=== PATIENT | female | born 1990 | race Caucasian/White ===

== ENCOUNTER 2016-05-20 09:45 | Emergency (ER) | payer OTHER ==
--- NOTE | 2016-05-20 10:21 | ER Document Report ---
[id number] TRAVEL OUTSIDE OF THE [place] IN LAST 30 DAYS: No - HPI Patient complains to provider of: Difficulty breathing Onset/Duration: Gradual, Persistent Associated symptoms: Chest pain - with cough, Productive cough. denies: Diarrhea, Fever, Nausea, Vomiting - General Chief Complaint: Breathing Difficulty Stated Complaint: DIFFICULTY BREATHING Notes: Patient is a 25-year-old female presenting to the emergency department with concerns of difficulty breathing. Patient has lost her voice, and states that her chest hurts when she coughs or laughs, but she denies fever, vomiting, nausea, diarrhea, or any chance of being . Patient also states that recently she was felt some pressure in her lymph nodes. Patient received some Tamiflu from her [id number] which she took , but it did not help. Saturday patient began taking cough syrup with codeine that she had from the last time she had bronchitis. This morning, patient noticed that she began to wheeze which worried her, so she came into the emergency room. (KARSTEN RYAN) - Related Data Allergies/Adverse Reactions: amoxicillin [Amoxicillin] Allergy (Verified 05/22/15 19:51) Penicillins Allergy (Verified 05/22/15 19:51) Past Medical History - Social History Smoking Status: Unknown if Ever Smoked Lives with: Family Family History: Reviewed & Not Pertinent Pulmonary Medical History: Reports: Hx Asthma, Hx Bronchitis - seasonal Past Surgical History: Reports: Hx Adenoidectomy, Hx Oral Surgery, Hx Tonsillectomy - Immunizations Immunizations up to date: Yes Hx Diphtheria, Pertussis, Tetanus Vaccination: Yes Review of Systems - Review of Systems Constitutional: No symptoms reported. denies: Fever EENT: No symptoms reported Cardiovascular: No symptoms reported Respiratory: Cough, Hurts to breathe, Wheezing Gastrointestinal: No symptoms reported. denies: Diarrhea, Nausea, Vomiting Genitourinary: No symptoms reported Female Genitourinary: No symptoms reported Musculoskeletal: No symptoms reported Skin: No symptoms reported Hematologic/Lymphatic: No symptoms reported Neurological/Psychological: No symptoms reported Physical Exam - Vital signs Interpretation: Tachycardic - General General appearance: Alert - HEENT Head: Normocephalic, Atraumatic Eyes: Normal Pupils: PERRL Neck: No: Lymphadenopathy - Respiratory Respiratory status: No respiratory distress Chest status: Tender, Pain with cough Breath sounds: Wheezing - Chest tight with occasional inspiratory wheeze. - Cardiovascular Rhythm: Regular Heart sounds: Normal auscultation Murmur: No - Abdominal Inspection: Normal Distension: No distension Bowel sounds: Normal Tenderness: Nontender Organomegaly: No organomegaly - Back Back: Normal, Nontender - Extremities General upper extremity: Normal inspection, Nontender, Normal color, Normal ROM , Normal temperature General lower extremity: Normal inspection, Nontender, Normal color, Normal ROM , Normal temperature, Normal weight bearing - Neurological Neuro grossly intact: Yes Cognition: Normal Orientation: AAOx4 Eagle Coma Scale Eye Opening: Spontaneous Eagle Coma Scale Verbal: Oriented Ness Coma Scale Motor: Obeys Commands Eagle Coma Scale Total: 15 Speech: Normal - Psychological Associated symptoms: Normal affect, Normal mood - Skin Skin Temperature: Warm Skin Moisture: Dry Skin Color: Normal - Vital signs Vitals: Temp Pulse Resp BP Pulse Ox 98.2 F 108 H 18 126/86 H 100 05/20/16 09:49 05/20/16 09:49 05/20/16 09:49 05/20/16 09:49 05/20/16 09:49 (ALY MUNGUIA) (KARSTEN RYAN) Course - Re-evaluation Re-evalutation: 05/20/16 11:37 I personally performed the services described in the documentation, reviewed and edited the documentation which was dictated to my scribe in my presence, and it accurately records my words and actions. She presents emergency Department with a one-day history of wheezing chest is tight cough and laryngitis. Hasn't been sick around her coughed all night long no medications at home for this. She is a history of asthma as a child but says she hasn't any use anything since she was 16. Denies any recent history of travel surgery mobilization DVT or pulmonary emboli no clinical concerns for cardiac or pulmonary emboli she is not hypoxic significant improvement with breathing treatments chest x-ray is negative for pneumonia. We will DC on albuterol inhaler and prednisone for primary care physician to 3 days and discussed reasons for ED return sooner (ALY MUNGUIA) - Vital Signs Vital signs: Temp Pulse Resp BP Pulse Ox 98.3 F 85 20 126/78 H 98 05/20/16 12:38 05/20/16 12:38 05/20/16 12:38 05/20/16 12:38 05/20/16 12:38 (ALY MUNGUIA) (KARSTEN RYAN) Scribe Documentation - Scribe Written by Johnathan:: Karsten Ryan 05/20/2016 10:21 acting as scribe for :: Gregg
[2016-05-20] MEDS ORDERED: PREDNISONE 20 MG TABLET PO ONE (10:49)
[2016-05-20] MEDS ORDERED: ALBUTEROL SULFATE 0.083% NEB 2.5 MG/3 ML AMPUL NEB ONE (10:49)
[2016-05-20] MEDS ORDERED: IPRATROPIUM BROMIDE 0.02% NEB 0.5 MG/2.5 ML AMPUL NEB PRN (10:49)
[2016-05-20 12:39] VITALS: BP 126/78
== END 2016-05-20 12:39 | disposition home or self-care (01) ==
LOC: ER 09:45
DX: J40 Bronchitis, not specified as acute or chronic (principal); J45.909 Unspecified asthma, uncomplicated; J04.0 Acute laryngitis; R07.1 Chest pain on breathing; R05 Cough; Z88.0 Allergy status to penicillin
CPT/HCPCS: 94640; 99284; 71020; J7512

== ENCOUNTER 2016-05-20 19:45 | Emergency (ER) | payer OTHER ==
[2016-05-20] MEDS ORDERED: DIPHENHYDRAMINE HCL 50 MG CAPSULE PO ONE (20:05)
--- NOTE | 2016-05-20 20:07 | ER Document Report ---
ED Medical Screen (RME) - General Chief Complaint: Allergic Reaction Stated Complaint: MEDICATION REACTION FROM PREVIOUS VISIT Mode of Arrival: Ambulatory Information source: Patient Notes: Patient states she was evaluated earlier this afternoon and diagnosed with bronchitis. Patient states she was given a prescription for inhaler and prednisone. Patient reports after taking her additional dose of prednisone this evening she started have numbness to bilateral lower extremities. Patient states that when she touches her legs she feels pressure but does not feel light touch. Patient reports feeling faint erythematous rash to bilateral forearms that is now improved. TRAVEL OUTSIDE OF THE [place] IN LAST 30 DAYS: No - Related Data Allergies/Adverse Reactions: amoxicillin [Amoxicillin] Allergy (Verified 05/22/15 19:51) Penicillins Allergy (Verified 05/22/15 19:51) Past Medical History - Social History Family history: CAD - Father-CO at age 25 Pulmonary Medical History: Reports: Hx Asthma, Hx Bronchitis - seasonal, Hx Pneumonia Past Surgical History: Reports: Hx Adenoidectomy, Hx Oral Surgery, Hx Tonsillectomy - Immunizations Immunizations up to date: Yes Hx Diphtheria, Pertussis, Tetanus Vaccination: Yes Physical Exam - General General appearance: Appears well, Alert Notes: Patient walked without difficulty in triage. No angioedema - Respiratory Respiratory status: No respiratory distress Breath sounds: Nonproductive cough
[2016-05-20 20:08] VITALS: BP 150/99
[2016-05-20 22:09] LABS: APPEARANCE,URINE CLOUDY; BILIRUBIN,URINE NEGATIVE (NEGATIVE); GLUCOSE, URINE 50 mg/dL (NEGATIVE); KETONES,URINE NEGATIVE (NEGATIVE); LEUKOCYTE ESTERASE,URINE SMALL (NEGATIVE); NITRITE,URINE NEGATIVE (NEGATIVE); PROTEIN,URINE 30 mg/dL (NEGATIVE); URINE SPECIFIC GRAVITY 1.015; UROBILINOGEN,URINE NEGATIVE mg/dL (<2.0)
[2016-05-20 22:15] LABS: URINE BARBITURATES SCREEN NEGATIVE; URINE METHADONE SCREEN NEGATIVE; URINE PHENCYCLIDINE SCREEN NEGATIVE
== END 2016-05-20 21:37 | disposition left against medical advice (07) ==
LOC: ER 19:45
DX: R20.0 Anesthesia of skin (principal); T38.0X5A Adverse effect of glucocorticoids and synthetic analogues, initial encounter; R05 Cough; Z53.20 Procedure and treatment not carried out because of patient's decision for unspecified reasons; Z88.0 Allergy status to penicillin
CPT/HCPCS: 99281; 81001; G0479; 80307

== ENCOUNTER 2016-05-22 17:43 | Emergency (ER) | payer OTHER ==
[2016-05-22 19:01] VITALS: BP 132/78
== END 2016-05-22 21:04 | disposition left against medical advice (07) ==
LOC: ER 17:43
DX: Z53.21 Procedure and treatment not carried out due to patient leaving prior to being seen by health care provider (principal)

== ENCOUNTER 2016-09-13 10:53 | Emergency (ER) | payer OTHER ==
[2016-09-13 10:58] VITALS: BP 116/75
[2016-09-13] MEDS ORDERED: ONDANSETRON 4 MG TAB.RAPDIS PO ONE (11:42)
--- NOTE | 2016-09-13 11:44 | ER Document Report ---
ED GI/ - General Time seen by provider: 11:38 TRAVEL OUTSIDE OF THE [place] IN LAST 30 DAYS: No - HPI Patient complains to provider of: Abdominal pain, Diarrhea, Vomiting Onset: Other - see HPI note Associated symptoms: Diarrhea, Nausea, Vomiting Similar symptoms previously: No Recently seen / treated by doctor: No - General Chief Complaint: Abdominal Pain Stated Complaint: VOMITING/DIARRHEA Notes: Patient is a 26-year-old female presenting to emergency department for vomiting , diarrhea, headache, and weakness. Patient denies any recent sick contact. Patient states her symptoms onset at 12:30 yesterday. Patient states that she cannot keep anything down including water. Patient states she is also having some sharp pain in her stomach area. Patient denies being states she is on the Mirena and just finished her menstrual cycle. (SADIE MATIAS) - Related Data Allergies/Adverse Reactions: amoxicillin [Amoxicillin] Allergy (Verified 09/13/16 10:58) Penicillins Allergy (Verified 09/13/16 10:58) prednisone Allergy (Verified 09/13/16 10:58) Past Medical History - General Information source: Patient - Social History Smoking Status: Current Every Day Smoker Chew tobacco use (# tins/day): No Frequency of alcohol use: None Drug Abuse: None Family History: None Patient has suicidal ideation: No Patient has homicidal ideation: No Pulmonary Medical History: Reports: Hx Asthma, Hx Bronchitis - seasonal, Hx Pneumonia Renal/ Medical History: Denies: Hx Peritoneal Dialysis Past Surgical History: Reports: Hx Adenoidectomy, Hx Oral Surgery, Hx Tonsillectomy - Immunizations Immunizations up to date: Yes Hx Diphtheria, Pertussis, Tetanus Vaccination: Yes Review of Systems - Review of Systems Constitutional: No symptoms reported EENT: No symptoms reported Cardiovascular: No symptoms reported Respiratory: No symptoms reported Gastrointestinal: See HPI, Abdominal pain, Diarrhea, Nausea, Vomiting Genitourinary: No symptoms reported Female Genitourinary: No symptoms reported Musculoskeletal: No symptoms reported Skin: No symptoms reported Hematologic/Lymphatic: No symptoms reported Neurological/Psychological: No symptoms reported -: Yes All other systems reviewed and negative Physical Exam - Vital signs Interpretation: Normal - General General appearance: Appears well, Alert In distress: Mild - HEENT Head: Normocephalic, Atraumatic Eyes: Normal Pupils: PERRL Mucous membranes: Dry - Respiratory Respiratory status: No respiratory distress Chest status: Nontender Breath sounds: Normal Chest palpation: Normal - Cardiovascular Rhythm: Regular Heart sounds: Normal auscultation Murmur: No - Abdominal Inspection: Normal Distension: No distension Bowel sounds: Normal Tenderness: Tender - mild epigastric tenderness Organomegaly: No organomegaly - Back Back: Normal, Nontender - Extremities General upper extremity: Normal inspection, Normal ROM, Normal strength General lower extremity: Normal inspection, Normal ROM, Normal strength - Neurological Neuro grossly intact: Yes Cognition: Normal Orientation: AAOx4 Ness Coma Scale Eye Opening: Spontaneous Bally Coma Scale Verbal: Oriented Bally Coma Scale Motor: Obeys Commands Ness Coma Scale Total: 15 Speech: Normal - Psychological Associated symptoms: Normal affect, Normal mood - Skin Skin Temperature: Warm Skin Moisture: Dry Course - Re-evaluation Re-evalutation: 09/13/16 12:25 Patient presents emergency Department with chief plain nausea vomiting diarrhea began last evening. Says she can't keep anything down denies any abdominal pain other than right before she has vomiting or diarrhea. She doesn't have any history of Crohn's disease fevers or chills. Diarrhea is nonbloody. On examination she is well-appearing nontoxic not actively vomiting. Denies a chance of just finished her menstrual cycle. This time I gave her 8 of Zofran. 09/13/16 12:51 09/13/16 14:25 Patient had IV fluids significantly improved IV Zofran tolerating by mouth fluids now serial abdominal examinations no guarding rebound rigidity will be discharged on Zofran for primary care physician to 3 days oral hydration and discussed reasons for return sooner 09/13/16 14:28 (ALY MUNGUIA) - Vital Signs Vital signs: Temp Pulse Resp BP Pulse Ox 98.2 F 84 14 116/75 100 09/13/16 10:55 09/13/16 10:55 09/13/16 10:55 09/13/16 10:55 09/13/16 10:55 Discharge - Discharge Clinical Impression: nausea vomiting diarrhea Condition: Stable Disposition: HOME, SELF-CARE Additional Instructions: Vomiting Vomiting can be part of many illnesses. Most cases of vomiting are due to gastroenteritis, usually a viral infection in the intestinal tract. There is no specific treatment. The disease will end by itself. For now, the main danger to your child is dehydration. During the first few hours of the illness, give clear liquids, such as Pedialyte. Try to give small quantities frequently, such as a teaspoon of liquid every minute or about an ounce of fluids every five to ten minutes. Medications may be prescribed by the physician for special cases. After an hour or two of fluids without vomiting, add rice cereal, toast, applesauce, or bananas and other more solid foods to the clear liquids. Call the physician or go to the hospital if vomiting increases or blood appears in the bowel movement or vomitus; if your child fails to improve, or if signs of dehydration occur (no wet diapers for eight to twelve hours, tongue and mouth become dry, not acting as alert as usual). Diarrhea Diarrhea means frequent, watery stools. There are many causes. Any problem that keeps the intestinal tract from absorbing water from the stool can lead to diarrhea. A sudden new diarrhea problem is usually caused by a virus, food sensitivity, toxic bacteria, or drugs. In this case, we expect the problem to go away soon. Testing is done only if you seem seriously ill from the diarrhea. If you have chronic diarrhea, or diarrhea that keeps coming back, we need to find out why. Chronic diarrhea can be due to inflammation of the bowels such as Crohn's disease or ulcerative colitis, food sensitivity such as intolerance to lactose or wheat protein, irritable bowel syndrome, and other problems. If your diarrhea is a significant problem but it's not clear why you have it, we' ll refer you to a specialist for further testing. During an episode of diarrhea, drink small amounts (two to six ounces) of clear liquids (soft drinks, sport drinks, herb teas, broth, etc). Take fluids frequently to prevent dehydration. It's usually not a problem to take mild anti- diarrhea medication such as Kaopectate or Pepto-Bismol. As the diarrhea eases, advance to small amounts of bland food (mashed potato, toast) for 24 hours. Call the physician if blood appears in your vomit or stool, if vomiting lasts longer than 24 hours, if the abdominal pain worsens or becomes localized to one area, if you develop high fever, or if you become lightheaded and weak. Prescriptions: Ondansetron [Zofran Odt 4 mg Tablet] 1 - 2 tab PO Q4H PRN #15 tab.rapdis PRN Reason: For Nausea/Vomiting Referrals: JOSE HERMAN MD [Primary Care Provider] - Follow up as needed Scribe Attestation: 09/13/16 14:27 I personally performed the services described in the documentation reviewed the documentation recorded by my scribe in my presence and it accurately and completely records my words and actions (ALY MUNGUIA) Scribe Documentation - Scribe Written by Scribe:: Sadie Matias 09/13/16 13:10 acting as scribe for :: Gregg
[2016-09-13] MEDS ORDERED: ONDANSETRON HCL INJ/PF 4 MG/2 ML SDV IV ONE (12:45)
[2016-09-13] MEDS ORDERED: NORMAL SALINE 1000 ML 1,000 ML IV ONE (12:45)
== END 2016-09-13 15:06 | disposition home or self-care (01) ==
LOC: ER 10:53
DX: R11.2 Nausea with vomiting, unspecified (principal); R19.7 Diarrhea, unspecified; R10.9 Unspecified abdominal pain; R53.1 Weakness; F17.200 Nicotine dependence, unspecified, uncomplicated
CPT/HCPCS: 99283; 96361; 96374; S0119; J2405; J7030

== ENCOUNTER 2016-12-11 14:49 | Emergency (ER) | payer OTHER ==
[2016-12-11 15:04] VITALS: BP 119/67
--- NOTE | 2016-12-11 15:06 | ER Document Report ---
HPI - HPI Patient complains to provider of: Neck lump and headache Onset: Other Onset/Duration: Gradual, Persistent Quality of pain: Achy Pain Level: 3 Context: 26-year-old female complaining of a posterior occipital neck lump that she found several months ago and feels like it is larger today and she has a headache that starts in the back of her neck and comes all the way to the front intermittent for 3 weeks. This headache started this morning. Light sensitivity associated with it. No history of migraines. She also is complaining of a swollen area that is tender left neck. There is no sore throat runny nose or cough. No fever. No postnasal drip. No ear pain. Denies has a Mirena IUD. Associated Symptoms: None Exacerbated by: Denies Relieved by: Other - Motrin helps Similar symptoms previously: Yes Recently seen / treated by doctor: No - ROS ROS below otherwise negative: Yes Systems Reviewed and Negative: Yes All other systems reviewed and negative - REPRODUCTIVE LMP: IuD Reproductive: DENIES: : - DERM Skin Color: Normal Past Medical History - General Information source: Patient - Social History Smoking Status: Never Smoker Frequency of alcohol use: None Drug Abuse: None Lives with: Family Family History: None Patient has suicidal ideation: No Patient has homicidal ideation: No Pulmonary Medical History: Reports: Hx Asthma, Hx Bronchitis - seasonal, Hx Pneumonia Renal/ Medical History: Denies: Hx Peritoneal Dialysis Past Surgical History: Reports: Hx Adenoidectomy, Hx Oral Surgery, Hx Tonsillectomy - Immunizations Immunizations up to date: Yes Hx Diphtheria, Pertussis, Tetanus Vaccination: Yes Vertical Provider Document - CONSTITUTIONAL Agree With Documented VS: Yes Exam Limitations: No Limitations - INFECTION CONTROL TRAVEL OUTSIDE OF THE [place] IN LAST 30 DAYS: No - HEENT HEENT: Atraumatic, Normocephalic, PERRLA. negative: Conjuctival Injection, Tympanic Membrane Red Notes: Posterior occipital less than 1 cm mobile lymph node with left trapezius muscle tenderness on the way to the insertion at the base of the skull. Tender anterior cervical lymph node which is less than 1 cm. - NECK Neck: Supple, Thyroid Normal, Lymphadenopathy-Left - See above - RESPIRATORY Respiratory: Breath Sounds Normal, No Respiratory Distress O2 Sat by Pulse Oximetry: 99 - CARDIOVASCULAR Cardiovascular: Regular Rate, Regular Rhythm - GI/ABDOMEN Gastrointestinal: Abdomen Soft, Abdomen Non-Tender, No Organomegaly - MUSCULOSKELETAL/EXTREMETIES Musculoskeletal/Extremeties: MAEW, FROM, Non-Tender - NEURO Level of Consciousness: Awake, Alert, Appropriate Motor/Sensory: No Motor Deficit, No Sensory Deficit - DERM Integumentary: Warm, Dry, No Rash Course - Re-evaluation Re-evalutation: 12/11/16 16:19 LARRY level down to 1/5, almost gone away, called for a driver lifter of sanitation truck. referrals given pt understands instructions - Vital Signs Vital signs: Temp Pulse Resp BP Pulse Ox 99.5 F 89 18 119/67 99 12/11/16 15:02 12/11/16 15:02 12/11/16 15:02 12/11/16 15:02 12/11/16 15:02 Discharge - Discharge Clinical Impression: left Anterior cervical lymphadenopathy, posterior occipital lymph node, muscle contractin headache Condition: Good Disposition: HOME, SELF-CARE Instructions: Cervical Lymphadenitis ([facility]), Muscle Relaxers ([facility]), Myalagia ( Muscle Pain) ([facility]), Headache ([facility]), Neurologist, ENT, Family Physicians / Practices, Toradol Injection ([facility]), Intravenous Compazine for Headaches ([facility]), Use of Diphenhydramine, Clindamycin ([facility]) Additional Instructions: warm compress to sore neck muscle tylenol motrin benadryl see the neurologist if persists see ENT doctor if the lymph nodes get larger to er any concerns Please complete the patient satisfaction survey if you get one, and return it.. If you do not receive a survey, then you can go to the [facility] website, [email or web address] and place your comments about your very good care. Thank you very much. It was a pleasure being your medical provider today. Prescriptions: Ibuprofen [Motrin 800 mg Tablet] 800 mg PO Q8HP PRN #30 tablet PRN Reason: Clindamycin HCl [Cleocin 150 mg Capsule] 300 mg PO TID #42 capsule Cyclobenzaprine HCl [Flexeril 10 Mg Tablet] 10 mg PO TIDP PRN #20 tablet PRN Reason:
[2016-12-11] MEDS ORDERED: KETOROLAC TROMETHAMINE 60 MG/2 ML SDV IV ONE (15:20)
[2016-12-11] MEDS ORDERED: PROCHLORPERAZINE EDISYLATE INJ 10 MG/2 ML VIAL IV ONE (15:21)
[2016-12-11] MEDS ORDERED: DIPHENHYDRAMINE HCL 50 MG/ML VIAL IV ONE (15:21)
== END 2016-12-11 16:34 | disposition home or self-care (01) ==
LOC: ER 14:49
DX: R60.0 Localized edema (principal); R51 Headache; R22.1 Localized swelling, mass and lump, neck
CPT/HCPCS: 99283; 96374; 96375; J1200; J1885; J0780